=== PATIENT | female | born 2000 | race Two or more races ===

== ENCOUNTER 2022-09-17 11:05 | Day surgery (SDC) | payer OTHER ==
[2022-09-17 08:54] LABS: Absolute Lymphocytes (CBC) 3.1 K/uL (0.7-4.9); Hematocrit 39.5 % (36.0-45.0); Lymphocytes % 35.6 % (15.3-44.8); MCV 72.8 fL (80-100); MPV 9.4 fL (7.6-11.3); RBC Red Blood Cell Count 5.43 M/uL (3.86-4.86)
[2022-09-17 09:07] LABS: Potassium 4.2 mmol/L (3.5-5.1)
[2022-09-17] MEDS ORDERED: CEFAZOLIN SODIUM 1 GM/VIAL ONE (11:23)
[2022-09-17] MEDS ORDERED: Ringers Lactate 1,000 ML IV ONE (11:23)
[2022-09-17 12:04] VITALS: O2SAT 100
[2022-09-17] MEDS ORDERED: BUPIVACAINE 0.5% PF 10 ML VIAL ONE (12:04)
[2022-09-17] MEDS ORDERED: propofoL 200 MG/20 ML VIAL IV ONE (12:23)
[2022-09-17] MEDS ORDERED: FENTANYL CITR 100 MCG/2 ML ONE ×2 (12:23→14:21)
[2022-09-17] MEDS ORDERED: NS 0.9% VIAL 10 ML ONE (12:23)
[2022-09-17] MEDS ORDERED: LIDOCAINE 2% MPF 5 ML VIAL ONE (12:23)
[2022-09-17] MEDS ORDERED: MIDAZOLAM HCL 2 MG/2 ML INJ ONE (12:23)
[2022-09-17] MEDS ORDERED: dexAMETHasone 10 MG/ML VIAL ONE (13:19)
[2022-09-17] MEDS ORDERED: KETOROLAC 30 MG/ML INJ ONE (13:19)
[2022-09-17] MEDS ORDERED: ONDANSETRON 4 MG/2 ML VIAL ONE (13:19)
[2022-09-17] MEDS ORDERED: Mastisol Adhesive Liq ONE (13:36)
--- NOTE | 2022-09-17 13:46 | P.BOP ---
Preoperative diagnosis: palpable tender left breast mass Postoperative diagnosis: same Primary procedure: Excisional biopsy of palpable tender left breast mass 2x2cm Estimated blood loss: <10cc Specimen: mass Findings: palpable left breast mass Anesthesia: General Complications: None Transferred to: Recovery Room Condition: Good
[2022-09-17] MEDS ORDERED: HYDROCODONE/APAP 7.5/325 MG TAB ONE (15:19)
[2022-09-17 17:06] VITALS: BP 102/71; TEMP 97.1
--- NOTE | 2022-09-17 17:33 | OP ---
Date of Procedure: 09/17/2022 Surgeon: Parish Edmondson MD Preoperative Diagnosis: Palpable tender left breast mass. Postoperative Diagnosis: Palpable tender left breast mass. Procedure: Excisional biopsy of palpable tender left breast mass. Anesthesia: General plus local. Finding: Palpable hard mass. Complications: None. Indication: This is the case of a 22-year-old patient with a palpable left breast mass, increasing i n size, increasing in tenderness. She has an imaging done, confirmed the mass. She wants that excis ed. She does not want just a core biopsy, she wants the mass completely excised and sent that for bi opsy. So, we explained to her the benefits, alternatives, and risks of lumpectomy or excisional biop sy of left breast mass with benefits, alternatives and risks including, but not limited to infection, bleeding, damage to adjacent structures, anesthesia complication, recurrence, CA, and even . S he also understands this may not relieve any symptoms. She might need more than one surgical interve ntion. She also understands it will leave a scar in that area. She signed a consent. Procedure In Detail: The patient was brought to the operating room, placed in supine position. Anes thesia was done without complication. The left breast was prepped and draped in the usual sterile fa shion. The area of concern was marked by me and the patient in the holding room since it was palpabl e. An incision was made in that area after time-out and local anesthetic. The incision was carried down to the breast tissue. We noticed the mass, held in place with an Allis, and then removed from t he rest of the subcutaneous tissue and breast tissue. Mass was sent to the pathologist. The area wa s irrigated and then we proceeded to close that with 3-0 chromic after hemostasis was obtained and lo yadiel anesthetic and then the skin with 4-0 PDS. The patient tolerated the procedure well. The patien t was sent to recovery in stable condition. VISHAL/ANNMARIE Voice ID: [id number] Report ID: [id number]
--- NOTE | 2022-09-17 17:40 | DS ---
Date of Discharge: 09/17/2022 Diagnosis: Probable tender left breast mass. Procedure: Excisional biopsy of palpable tender left breast mass. Disposition: Home. Activity: As tolerated. No heavy lifting. Plan: Use breast support. Followup in my office in 1 week. Call for appointment at [phone]. Keep area dry for 48 hours, then may shower. Keep Steri-Strips intact. VISHAL/ANNMARIE Voice ID: [id number] Report ID: [id number]
== END 2022-09-17 15:41 | disposition home or self-care (01) ==
LOC: PRE 11:05 → OR 15:41
PROVIDERS: ATTEND Surgery
PROC: 0JB60ZZ Excision of Chest Subcutaneous Tissue and Fascia, Open Approach (ICD-10-PCS; principal; 2022-09-17 13:15)
DX: D24.2 Benign neoplasm of left breast (principal)
CPT/HCPCS: 36415; 80048; 84703; 85025; 88305; 88307; A4216; J0690; J1100; J2001; J2250; J2405; J2704; J3010; J7120

== ENCOUNTER 2024-07-29 20:45 | Emergency (ER) | payer OTHER ==
--- OUTSIDE RECORDS SUMMARY | 2024-07-29 20:49 | XMS REPORT | Continuity of Care Document ---
Author Name Unknown Address [address] [place] [address] [address] [place], [place] [id number] [place] [address] thconnect Address [address] [facility]. [address] [place] [address] Care Team Providers Care Behavioral Interventionist Name Role Phone Unavailable Unavailable Unavailable Problems Condition Name Condition Details Condition Category Status Onset Date Resolution Date Last Treatment Date Treating Clinician Comments Source Menorrhagi a Menorrhagi a Problem Active 03-12 00:00: 00 [facility] Obesity Obesity Problem Active 11-03 00:00: 00 [facility] Irregular periods Irregular Periods Problem Active 11-03 00:00: 00 [facility] Social History Smoking Status Start Date Stop Date Source Never Smoker [facility] Medications Ordered Medication Name Filled Medication Name Start Date Stop Date Current Medication? Ordering Clinician Indication Dosage Frequency Signature (SIG) Comments Components Source tranexamic acid 650 mg tablet Take 2 tablets 3 times a day by oral route for 5 days. tranexamic acid 650 mg tablet Take 2 tablets 3 times a day by oral route for 5 days. No 2 TID tranexamic acid 650 mg tablet Take 2 tablets 3 times a day by oral route for 5 days. [facility] Vital Signs Vital Name Observation Time Observation Value Comments S ource BP Diastolic 2024-03-12 00:00:00 77 mm[Hg] [facility] BP Systolic 2024-03-12 00:00:00 118 mm[Hg] [facility] Body Weight 2024-03-12 00:00:00 212.6 [lb_av] [facility] Height 2024-03-12 00:00:00 67 [in_i] [facility] BMI (Body Mass Index) 2024-03-12 00:00:00 33.3 kg/m2 [facility] BMI (Body Mass Index) 2023-11-04 00:00:00 31.7 kg/m2 [facility] BP Systolic 2023-11-04 00:00:00 112 mm[Hg] [facility] Body Weight 2023-11-04 00:00:00 202.2 [lb_av] [facility] BP Diastolic 2023-11-04 00:00:00 75 mm[Hg] [facility] Height 2023-11-04 00:00:00 67 [in_i] [facility] Procedures Procedure Date / Time Performed Performing Clinicia n Source US, transvaginal 2023-11-14 00:00:00 [facility] Lumpectomy of Left Breast 2022-07-08 00:00:00 [facility] Encounters Start Date/Time End Date/Time Encounter Type Admission Type Attending Clinicians Care Facility Care Department Encounter ID Source 2024-03-12 00:00:00 2024-03-12 00:00:00 TAWNY Esposito: [address], [address], [place] [id number] , Ph. Formerly [facility] GC_GCBZW_Alize alejandre Elan* [id number] [facility] 2023-11-20 00:00:00 2023-11-20 00:00:00 TAWNY Esposito: [address], [place] [id number] , Ph. [facility]ly [facility] GC_GCBZW_Alize Ansari* [id number] [facility] 2023-11-14 00:00:00 2023-11-14 00:00:00 Sakina Payne MD: [address], [place] [id number] , Ph. [facility]ly [facility] GC_GCBZW_[place] Elan* [id number] [facility] 2023-11-04 00:00:00 2023-11-04 00:00:00 TAWNY Esposito: [address], [place] [id number] , Ph. [facility] - GC_GCBZW_[place] Ansari* [id number] [facility] 2023-09-09 14:27:21 2023-09-09 14:27:21 Outpatient [facility] [id number] Adriel Aguilar 2023-04-27 09:26:42 2023-04-27 09:26:42 Outpatient [facility] [id number] Adriel Aguilar Results Test Description Test Time Test Comments Results Result Co mments Source [facility] MedicalInsulin [Units/volume] in Serum or Plasma --[id number] 00:00:00* Test Item Value Reference Range Interpretation Comme nts insulin, fasting (test code = insulin, fasting) 16.2 u[IU]/mL 2.6-24.9 [facility] [id number] [Mass/volume] in Serum or [id number] 00:00:00* Test Item Value Reference Range Interpretation Comme nts 17-hydroxyprogesterone (test code = 17-hydroxyprogesterone) 21 NG/dL see below [facility] MedicalThyrotropin [Units/volume] in Serum or [id number] 00:00:00* Test Item Value Reference Range Interpretation Comme nts TSH (test code = TSH) 2.800 uIU/mL 0.500-4.530 [facility] [Mass/volume] in Serum or [id number] 00:00:00* Test Item Value Reference Range Interpretation Comme nts testosterone (test code = testosterone) 33.4 NG/dL 8.4-48.1 [facility] MedicalGlucose [Mass/volume] in Serum or [id number] 00:00:00* Test Item Value Reference Range Interpretation Comme nts glucose (test code = glucose) 92 mg/dL 70-99 [facility] MedicalDehydroepiandrosterone sulfate (DHEA-S) [Mass/volume] in Serum or [id number] 00:00:00* Test Item Value Reference Range Interpretation Comme nts DHEA-S (test code = DHEA-S) 379.0 ug/dL 98.8-340.0 H [facility] MedicalLipid 1996 panel - Serum or [id number] 00:00:00* Test Item Value Reference Range Interpretation Comme nts cholesterol (test code = cholesterol) 193 mg/dL 0-200 triglycerides (test code = triglycerides) 171 mg/dL 10-150 H HDL cholesterol (test code = HDL cholesterol) 50 mg/dL >50 HDL risk factor (test code = HDL risk factor) 3.9 calc. VLDL cholesterol (test code = VLDL cholesterol) 34 calc Cholesterol in LDL [Mass/vol ume] in Serum or Plasma (test code = 2089-1) 120 mg/dL <100 H [facility] MedicalChlamydia trachomatis and Neisseria gonorrhoeae rRNA panel - Specimen by [facility] with probe [id number] 00:00:00* Test Item Value Reference Range Interpretation Comme nts aptima combo 2 swab (CT) (te st code = aptima combo 2 swab (CT)) CT NEG negative aptima combo 2 swab (GC) (te st code = aptima combo 2 swab (GC)) GC NEG negative [facility]regnancy test, [id number] 15:03:35* Test Item Value Reference Range Interpretation Comme nts HCG (test code = HCG) negative [facility], LB + reflex to HR HPV if [id number] 00:00:00* Test Item Value Reference Range Interpretation Comme nts LMP date: (test code = LMP date:) 10/31/2023 Pap, liquid-based (test code = Pap, liquid-based) NILM nilm source (liquid-based cytology): (test code = source (liquid-based cytology):) CERVICAL (WHICH INCLUDES ENDOCERVICAL) [facility] MedicalHEPATITIS C [id number] 02:03:49* Test Item Value Reference Range Interpretation Comme nts HEPATITIS C ANTIBODY (test code = 4675) NON-REACTIVE NON-REACTIVE UNLESS OTHERWISE INDICATED, ALL TESTING PERFORMED AT [facility] [address] [facility] [place] [address] MANAGER SHIP: VICTORINO FENTON M.D. CLIA NUMBER [id number] [facility] [place] [place]. [id number] COMPREHENSIVE METABOLIC [id number] 00:17:44* Test Item Value Reference Range Interpretation Comme nts GLUCOSE (test code = 2217) 91 MG/DL 70-99 BUN (test code = 2208) 9 MG/DL 6-20 CREATININE (test code = 2214) 0.76 MG/DL 0.60-1.30 eGFR (2020 CKD-EPI) (test code = 96970) 113 ML/MIN/1.73 >60 CALC BUN/CREAT (test code = 2234) 12 RATIO 6-28 SODIUM (test code = 2230) 138 MEQ/L 133-146 POTASSIUM (test code = 2227) 4.7 MEQ/L 3.5-5.4 CHLORIDE (test code = 2214) 102 MEQ/L 95-107 CARBON DIOXIDE (test code = 2205) 28 MEQ/L 19-31 CALCIUM (test code = 2208) 9.8 MG/DL 8.5-10.5 PROTEIN, TOTAL (test code = 2228) 7.4 G/DL 6.1-8.3 ALBUMIN (test code = 2200) 4.4 G/DL 3.5-5.2 CALC GLOBULIN (test code = 2239) 3.0 G/DL 1.9-3.7 CALC A/G RATIO (test code = 2233) 1.5 RATIO 1.0-2.6 BILIRUBIN, TOTAL (test code = 2206) 0.3 MG/DL <=1.2 ALKALINE PHOSPHATASE (test code = 2203) 88 U/L 40-117 AST (test code = 2217) 16 U/L 9-40 ALT (test code = 2218) 13 U/L 5-40 TSH, THIRD [id number] 00:17:31* Test Item Value Reference Range Interpretation Comme nts TSH, THIRD GENERATION (test code = 2821) 2.910 UIU/ML 0.400-4.100 CBC W/AUTO DIFF WITH [id number] 01:41:01* Test Item Value Reference Range Interpretation Comme nts WBC (test code = 1001) 8.4 K/UL 3.5-11.0 RBC (test code = 1002) 5.66 M/UL 3.80-5.40 H HEMOGLOBIN (test code = 1003) 13.4 G/DL 11.5-15.5 HEMATOCRIT (test code = 1004) 42.2 % 34.0-45.0 MCV (test code = 1005) 74.6 fL 80.0-99.0 L MCH (test code = 1006) 23.7 PG 25.0-33.0 L MCHC (test code = 1007) 31.8 G/DL 31.0-36.0 RDW (test code = 1038) 14.0 % 11.5-15.0 NEUTROPHILS (test code = 1008) 54.2 % LYMPHOCYTES (test code = 1010) 37.1 % MONOCYTES (test code = 1011) 4.5 % EOSINOPHILS (test code = 1012) 3.1 % BASOPHILS (test code = 1013) 1.0 % IMMATURE GRANULOCYTES (test code = 1036) 0.1 % NUCLEATED RBCS (test code = 1065) 0.0 /100 WBC'S See_Comment [Automated Open Utilitya ge] The system which generated this result transmitted reference range: 0.0. The reference range was not used to interpret this result as normal/abnormal. PLATELET COUNT (test code = 1015) 307 K/UL 130-400 ABSOLUTE NEUTROPHILS (test code = 1066) 4.55 K/UL 1.50-7.50 ABSOLUTE LYMPHOCYTES (test code = 1067) 3.12 K/UL 1.00-4.00 ABSOLUTE MONOCYTES (test code = 1068) 0.38 K/UL 0.20-1.00 ABSOLUTE EOSINOPHILS (test code = 1040) 0.26 K/UL 0.00-0.50 ABSOLUTE BASOPHILS (test code = 1069) 0.08 K/UL 0.00-0.20 ABS IMMATURE GRANULOCYTES (test code = 1020) 0.01 K/UL 0.00-0.10 ABS NUCLEATED RBCS (test code = 16279) 0.00 K/UL 0.00-0.11
--- NOTE | 2024-07-29 22:15 | RAD REPORT ---
EXAM: XR SOFT TISSUE NECK CLINICAL INDICATION: r/o FB - chicken bone. COMPARISON: None FINDINGS: Soft Tissues: Included aerodigestive tract is normal. Included Osseous Structures: No acute osseous abnormality Included Lung Apices: Normal IMPRESSION: Unremarkable radiographs of the soft tissues of the neck.
--- NOTE | 2024-07-29 22:49 | ER ---
Nurse's Notes [facility] Name: Josie Kruse Age: 24 yrs Sex: Female : 2000 Arrival Date: 07/29/2024 Time: 20:45 Bed 7 Private MD: Diagnosis: Foreign body in esophagus Presentation: 07/29 21:46 Chief complaint: Patient states: A foreign body stuck in throat. Coronavirus screen: ay Client denies travel out of the [place] in the last 14 days. Ebola Screen: No symptoms or risks identified at this time. Initial Sepsis Screen: Does the patient meet any 2 criteria? No. Patient's initial sepsis screen is negative. Does the patient have a suspected source of infection? No. Patient's initial sepsis screen is negative. Risk Assessment: Do you want to hurt yourself or someone else? Patient reports no desire to harm self or others. Note Pt stated that she has chicken bone stuck in her throat. Denies SOB, CP, N/V. No respiratory distress noted. Onset of symptoms was July 29, 2024. 21:46 Method Of Arrival: Ambulatory ay 21:46 Acuity: MASSIEL 4 ay Triage Assessment: 21:46 General: Appears in no apparent distress. comfortable, Behavior is calm, cooperative. ay Pain: Complains of pain in throat. EENT: Throat is clear Reports pain in throat. Neuro: Level of Consciousness is awake, alert, obeys commands, Oriented to person, place, time, situation, Speech is normal. Cardiovascular: Capillary refill < 3 seconds. Respiratory: Airway is patent Respiratory effort is even, unlabored, Respiratory pattern is regular, symmetrical. GI: Abdomen is flat. : No signs and/or symptoms were reported regarding the genitourinary system. Derm: No signs and/or symptoms reported regarding the dermatologic system. Musculoskeletal: No signs and/or symptoms reported regarding the musculoskeletal system. Historical: - Allergies: 22:52 No Known Allergies; bm8 - Home Meds: 22:52 None [Active]; bm8 - PMHx: 22:52 None; bm8 - PSHx: 22:52 None; bm8 - Immunization history:: Adult Immunizations up to date. - Infectious Disease History:: Denies. - Social history:: Smoking status: Patient denies any tobacco usage or history of. Screenin:46 [facility] ED Fall Risk Assessment (Adult) History of falling in the last 3 months, ay including since admission No falls in past 3 months (0 pts) Confusion or Disorientation No (0 pts) Intoxicated or Sedated No (0 pts) Impaired Gait No (0 pts) Mobility Assist Device Used No (0 pt) Altered Elimination No (0 pt) Score/Fall Risk Level 0 - 2 = Low Risk. Abuse screen: Denies threats or abuse. Nutritional screening: No deficits noted. Tuberculosis screening: No symptoms or risk factors identified. Assessment: 21:46 General: Appears in no apparent distress. comfortable, Behavior is calm, cooperative. ay Pain: Complains of pain in throat Pain currently is 6 out of 10 on a pain scale. Neuro: Level of Consciousness is awake, alert, obeys commands, Oriented to person, place, time, situation, Speech is normal. Cardiovascular: Capillary refill < 3 seconds. Respiratory: Airway is compromised Respiratory effort is even, unlabored, Respiratory pattern is regular, symmetrical. GI: Abdomen is flat, Patient currently denies nausea, pain, vomiting. : No signs and/or symptoms were reported regarding the genitourinary system. EENT: Reports pain in throat when swallowing. Derm: No signs and/or symptoms reported regarding the dermatologic system. 21:52 General: Pt stated she has chicken bone stuck in her throat. Denies SOB, CP, N/V. No ay respiratory distress noted. VSS. 22:52 Reassessment: Patient appears in no apparent distress at this time. Patient and/or bm8 family updated on plan of care and expected duration. Pain level reassessed. Patient is alert, oriented x 3, equal unlabored respirations, skin warm/dry/pink. Patient denies pain at this time. Patient states feeling better. Patient states symptoms have improved. Vital Signs: 21:46 BP 121 / 80; Pulse 83; Resp 19; Temp 98.8; Pulse Ox 100% on R/A; ay 22:52 BP 116 / 73; Pulse 80; Resp 17; Temp 98.8; Pulse Ox 100% ; Pain 0/10; bm8 22:52 Pain Scale: Adult bm8 Cody Coma Score: 21:46 Eye Response: spontaneous(4). Motor Response: obeys commands(6). Verbal Response: ay oriented(5). Total: 15. 22:52 Eye Response: spontaneous(4). Motor Response: obeys commands(6). Verbal Response: bm8 oriented(5). Total: 15. ED Course: 21:34 Patient arrived in ED. gm2 21:34 Christiana Ansari FNP-C is [facility]. kb 21:34 Paul Sherwood MD is Attending Physician. kb 21:46 German Pereira, RN is Primary Nurse. ay 21:46 Patient has correct armband on for positive identification. Bed in low position. Call ay light in reach. Side rails up X2. Provided Education on: plan of care. 21:59 XRAY Neck Soft Tissue In Process Unspecified. EDMS 22:52 Provided Education on: post er care. bm8 22:52 No provider procedures requiring assistance completed. Patient did not have IV access bm8 during this emergency room visit. 23:01 Triage completed. ay Administered Medications: No medications were administered Medication: 21:46 VIS not applicable for this client. ay Outcome: 22:49 Discharge ordered by . kb 22:52 Discharged to home ambulatory, bm8 22:52 Condition: stable 22:52 Discharge instructions given to patient, Instructed on discharge instructions, Demonstrated understanding of instructions, follow-up care, 22:54 Patient left the ED. bm8 Signatures: Dispatcher [employer] EDPR Christiana Ansari FNP-C FNP-Irena Davis gm2 Petar Coleman, RN RN bm8 German Pereira, RN RENU anthony
--- NOTE | 2024-07-29 22:49 | EDPHYS ---
Physician Documentation [facility] Name: Josie Kruse Age: 24 yrs Sex: Female : 2000 Arrival Date: 07/29/2024 Time: 20:45 Bed 7 Private MD: ED Physician Paul Sherwood HPI: 07/29 23:23 This 24 yrs old [place] Female presents to ER via Ambulatory with complaints of kb Foreign Body In Throat. 23:23 Pt is a 24 year old female who presents for chicken bone stuck in throat. States she kb was eating chicken and felt like a bone got stuck. States she has been drinking water and ate some pizza afterwards to get it down. States it feels better, but she still feels like something is stuck. Denies shortness of breath. Historical: - Allergies: 22:52 No Known Allergies; bm8 - Home Meds: 22:52 None [Active]; bm8 - PMHx: 22:52 None; bm8 - PSHx: 22:52 None; bm8 - Immunization history:: Adult Immunizations up to date. - Infectious Disease History:: Denies. - Social history:: Smoking status: Patient denies any tobacco usage or history of. ROS: 23:23 Constitutional: As per HPI kb Exam: 23:23 Constitutional: This is a well developed, well nourished patient who is awake, alert, kb and in no acute distress. Head/Face: Normocephalic, atraumatic. ENT: Moist Mucous membranes Cardiovascular: Regular rate Respiratory: Respirations even and unlabored. No increased work of breathing. Talking in full sentences Skin: Warm, dry with normal turgor. Normal color. MS/ Extremity: Pulses equal, no cyanosis. Neurovascular intact. Full, normal range of motion. Neuro: Awake and alert, GCS 15, oriented to person, place, time, and situation. Vital Signs: 21:46 BP 121 / 80; Pulse 83; Resp 19; Temp 98.8; Pulse Ox 100% on R/A; ay 22:52 BP 116 / 73; Pulse 80; Resp 17; Temp 98.8; Pulse Ox 100% ; Pain 0/10; bm8 22:52 Pain Scale: Adult bm8 Cody Coma Score: 21:46 Eye Response: spontaneous(4). Motor Response: obeys commands(6). Verbal Response: ay oriented(5). Total: 15. 22:52 Eye Response: spontaneous(4). Motor Response: obeys commands(6). Verbal Response: bm8 oriented(5). Total: 15. MDM: 21:35 Medical Screening Exam initiated kb 23:24 Differential diagnosis: FB in esophagus. Data reviewed: vital signs, nurses notes. kb Historians other than the Patient: Spouse/Significant Other: spouse. Counseling: I had a detailed discussion with the patient and/or guardian regarding the historical points, exam findings, and any diagnostic results supporting the discharge/admit diagnosis, radiology results, the need for outpatient follow up, a personal trainer, to return to the emergency department if symptoms worsen or persist or if there are any questions or concerns that arise at home. ED course: Spouse states they know Dr Reyna personally and will call him in the morning for endoscopy if symptoms persist. Pt tolerating po intake and is in no distress. . 07/29 21:40 Order name: XRAY Neck Soft Tissue; Complete Time: 22:15 kb Administered Medications: No medications were administered Disposition: 07/30 03:56 Co-signature as Attending Physician, Paul Sherwood MD I agree with the assessment sp4 and plan of care. I reviewed the patient's care provided by the Advanced Practice Provider and agree with the diagnosis and treatment plan. Disposition Summary: 07/29/24 22:49 Discharge Ordered Notes: Location: Home kb Condition: Stable kb Diagnosis - Foreign body in esophagus kb Followup: kb - With: Emergency Department - When: As needed - Reason: Worsening of condition Followup: kb - With: Private Physician - When: 2 - 3 days - Reason: Recheck today's complaints, Continuance of care, Re-evaluation by your physician Discharge Instructions: - Discharge Summary Sheet kb - Swallowed Foreign Body, Adult, Yszg-ke-Nujz kb Forms: - Medication Reconciliation Form kb - Antibiotic Education kb - Prescription Opioid Use kb - Patient Portal Instructions kb - Leadership Thank You Letter kb Signatures: Dispatcher [employer] EDChristiana Rankin FNP-C FNP-Ckb Potepalov, Sergey, MD MD sp4 Petar Coleman RN RN bm8 Yakubu, Awudu, RN RN ay Corrections: (The following items were deleted from the chart) 07/29 21:40 21:40 Neck Soft Tissue+RAD.RAD.BRZ ordered. EDMS EDMS
[2024-07-30 02:51] VITALS: TEMP 98.8; O2SAT 100
[2024-07-30 02:52] VITALS: BP 116/73
== END 2024-07-29 22:54 | disposition home or self-care (01) ==
LOC: ER 20:45
DX: T18.128A Food in esophagus causing other injury, initial encounter (principal)
CPT/HCPCS: 70360; 99283